=== PATIENT | male | born 1950 | race Caucasian/White ===

== ENCOUNTER → 2016-10-16 | Outpatient (CLI) | payer OTHER | END | disposition home or self-care (01) | LOC: RAD 08:18 | DX: M25.511 Pain in right shoulder (principal) ==

== ENCOUNTER 2017-02-05 05:14 | Day surgery (SDC) | payer OTHER ==
[~2017-02-05] VITALS: Ht 177.8 cm; Wt 100.2 kg
--- NOTE | ~2017-02-05 | EKG ---
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
--- NOTE | ~2017-02-05 | O ---
[facility] [place] [address] OPERATIVE REPORT Name: HUGH BLUE Room #: DEP [facility]#: [id number] Admission: 02/05/17 Attend Phys: Jose G Eden MD Discharge: 02/05/17 Date of : 46 Report #: [id number] THIS REPORT FOR: //name// CC: Jose G GARCIA unknown DATE OF SERVICE: 02/05/2017 PREOPERATIVE DIAGNOSIS: Right rotator cuff tear, chronic. POSTOPERATIVE DIAGNOSIS: Right rotator cuff tear, chronic. PROCEDURE: Repair of right shoulder rotator cuff tear, chronic. SURGEON: Jose G Eden MD INDICATIONS: This 66-year-old gentleman complains of right shoulder pain and weakness, which has been a problem for the past couple of years. He has had previous MRI evaluation consistent with a rotator cuff tear. He initially tried conservative management, but without much success. He has elected to go ahead with decompressive acromioplasty and rotator cuff repair at this time. We have discussed that this may be difficult as this appears to be a chronic tear with some significant retraction. DESCRIPTION OF PROCEDURE: The patient was taken to the operating room where he was placed under general anesthetic and interscalene block was also applied. The right shoulder and arm were meticulously prepped and draped. An anterior longitudinal skin incision was made beginning at the anterior acromion, extending distally about 4-5 cm. This was carried through subcutaneous tissues and the deltoid was split longitudinally exposing the subacromial space. There was significant spurring at the anterior acromion, which was resected. A limited subacromial decompression was performed using a small osteotome and a rasp to smooth the undersurface. This created a good subacromial space and seemed to decompress the area nicely. This allowed good visualization of the rotator cuff. There was an obvious chronic retracted tear. This was a broad V-shaped tear extending through most of the supraspinatus and extending back toward the infraspinatus. The leading edge was trimmed and debrided to get to a good solid tendon. There was still sufficient tendon to bring this back nearly to its anatomic position at the greater tuberosity. Seven #1 Tevdek sutures were utilized, each having very satisfactory purchase in the tendon. A satisfactory reattachment point was created by decorticating the bone and creating a small trough at the inner margin of the greater tuberosity using an osteotome and curettes. This resulted in a very satisfactory reattachment point. The sutures were then passed individually with a large curved trocar needle out through the bone of the greater tuberosity and lateral aspect of the proximal humerus. These were spread out evenly to distribute the force. Once [address] [address] OPERATIVE REPORT Name: HUGH BLUE Room #: DEP [facility] Ed#: [id number] Admission: 02/05/17 Attend Phys: Jose G Eden MD Discharge: 02/05/17 Date of : 46 Report #: [id number] they were all placed, firm tension was applied and the leading edge of the rotator cuff came back nicely into the trough and was secured by tying all these sutures individually over bony bridges. This resulted in a satisfactory nearly anatomic repair. The cuff is mildly tight, but I could bring the arm down to neutral position without undue tension on the repair and the repair seemed to be solid and stable. The shoulder demonstrated good range of motion. Prior to closure, the intraarticular contents were inspected. The biceps tendon is still present, but there is some fraying. This was gently trimmed. I assessed its attachment and felt there was still sufficient strength such that a biceps tenotomy was not necessary at this point. The articular surfaces revealed only minor fissuring and abrasion in various places. No other significant intra-articular problems were identified. At this point, the deltoid was reapproximated using multiple #1 Vicryl sutures. The most proximal were passed through the bone and the leading edge of the acromion to establish a good bone to tendon repair. More distally, a [id number]-[id number]-[id number] repair was accomplished. The subcutaneous tissues were closed with 2-0 Monocryl. The skin was closed with a running subcuticular 2-0 Prolene supplemented with Steri-Strips. About 20 mL of 0.25% Marcaine was injected into the subcutaneous tissues and the subacromial space to help with postoperative pain management. A sterile dressing was applied. The patient was then awakened and returned to the recovery room in good condition. <ELECTRONICALLY SIGNED> By: Jose G Eden MD 02/06/17 0757 [id number] 0933 Jose G Eden MD /nt
[~2017-02-05 05:14] MED LIST: ADVIL200 M1 PO; OMEPRAZOLE20 M1 PO; ZESTRIL10 MG PO
[2017-02-05 07:37] VITALS: BP 132/79
[2017-02-05 09:26] VITALS: BP 132/79
== END 2017-02-05 12:35 | disposition home or self-care (01) ==
LOC: TBA 05:14 → OR 05:14
DX: M75.101 Unspecified rotator cuff tear or rupture of right shoulder, not specified as traumatic (principal); I10 Essential (primary) hypertension; K21.9 Gastro-esophageal reflux disease without esophagitis; Z98.890 Other specified postprocedural states; Z79.899 Other long term (current) drug therapy
CPT/HCPCS: 50010; 50101; 50386; 50417; 50733; 56525; 56526; 56527; 62110; 62900; 64039; 70005

== ENCOUNTER → 2017-12-07 | Outpatient (CLI) | payer OTHER | LOC: MRI 08:29 | DX: M47.816 Spondylosis without myelopathy or radiculopathy, lumbar region (principal); M48.062 Spinal stenosis, lumbar region with neurogenic claudication; M51.26 Other intervertebral disc displacement, lumbar region ==

== ENCOUNTER 2018-02-25 05:36 | Inpatient (IN) | payer OTHER ==
[~2018-02-25] VITALS: Ht 177.8 cm; Wt 93.0 kg
--- NOTE | ~2018-02-25 | O ---
[facility] [place] [address] OPERATIVE REPORT Name: HUGH BLUE Chrissy Room #: 460-P [facility] ..#: [id number] Admission: 02/25/18 Attend Phys: Jose G Eden MD Discharge: Date of : 46 Report #: [id number] THIS REPORT FOR: //name// CC: Jose G Loza DATE OF SERVICE: 02/25/2018 PREOPERATIVE DIAGNOSIS: Lumbar spinal stenosis L3-L4 and L4-L5. POSTOPERATIVE DIAGNOSIS: Lumbar spinal stenosis L3-L4 and L4-L5. PROCEDURE: Decompressive laminectomy and foraminotomy, L3-L4 and L4-L5. SURGEON: Jose G Eden MD INDICATIONS: This active, fit 67-year-old gentleman complains of back pain and radiating right leg pain. We have tried conservative measures for some time without clear benefit. His clinical exam and MRI study confirms rather severe spinal stenosis at L4-L5 and moderate stenosis at L3-L4 where there is also a small disk bulge or herniation toward the right side. We have elected to go ahead with surgical decompression of these two levels. DESCRIPTION OF PROCEDURE: The patient was taken to the operating room where he was placed under general anesthesia. Prophylactic intravenous antibiotics were administered. He was turned to the prone position. The low back was meticulously prepped and draped. A skin incision was made extending from L3 down through L5. This was carried through the fascia and muscles were retracted laterally exposing the spinous process and lamina of these three levels. The spinous process was removed and a laminectomy was performed removing the entire L4 lamina and most of the L3 as well as most of the L5 lamina. The area of marked stenosis was found to be at the L4-L5 disk space level. This opened up nicely with resection of the lamina and ligamentum. This was extended out laterally undercutting the facet joints, but leaving the facet joints intact for stability. There was significant, but less severe stenosis at the L3-L4 disk level. The dissection was extended out laterally undercutting the facet joints, but leaving the facets intact for stability. The area of possible right L3-L4 disk bulge or disk herniation was evaluated and there was some bulging and there was some chronic scarring, but there was not significant extruded disk fragment. The disk itself seemed to be stable and I did not elect to open the disk. The nerve root seemed to be freed up nicely with the laminectomy and foraminotomy. Intraoperative C-arm was used to confirm that I was at or slightly above the L3 lamina and at the mid to lower aspect of the L5 lamina, which seemed to be above and below the areas of stenosis. The canal did seem to open up quite nicely on direct visualization with good open canal at the upper and lower aspect of the dissection. [facility] [address] [place] [address] OPERATIVE REPORT Name: HUGH BLUE Room #: 460-P [facility] M.R.#: [id number] Admission: 02/25/18 Attend Phys: Jose G Eden MD Discharge: Date of : 46 Report #: [id number] There was moderate oozing from the bony surfaces throughout the procedure. I felt therefore that Hemovac drains at least overnight would be appropriate. The dura was covered with a small sheet of Gelfoam soaked in thrombin. A single Hemovac was left below the fascia and then the fascia was closed with multiple #1 Vicryl sutures. A second Hemovac was placed above the fascia deep to the subcutaneous tissues and then the subcutaneous tissues were closed with 0 Monocryl. The skin was closed with skin mayank. A sterile dressing was applied. The patient was awakened and returned to recovery room in good condition. <ELECTRONICALLY SIGNED> By: Jose G Eden MD 02/26/18 0731 1136 1149 Jose G Eden MD /nt
--- NOTE | ~2018-02-25 | EKG ---
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
[2018-02-25 08:00] VITALS: BP 113/64
[2018-02-25 13:39] VITALS: BP 112/64
[2018-02-25 16:30] VITALS: BP 128/83
[2018-02-25 18:50] VITALS: BP 129/80
[2018-02-25 19:10] VITALS: BP 119/71
[2018-02-26 03:37] VITALS: BP 141/84
[2018-02-26 07:56] VITALS: BP 141/98
[2018-02-26 09:49] VITALS: BP 141/98
[2018-02-26 10:44] VITALS: BP 141/98
== END 2018-02-26 11:22 | disposition home or self-care (01) | DRG 517 ==
LOC: TBA 05:36 → OR 05:36 → 4W 11:41 → OR 14:09 → ENTRNSPT 02-26 11:12 → EDTRNSPTSTS 02-26 11:15 → 4W 02-26 11:22
PROC: 01NB0ZZ Release Lumbar Nerve, Open Approach (ICD-10-PCS; principal; 2018-02-25)
DX: M48.061 Spinal stenosis, lumbar region without neurogenic claudication (principal); Z79.899 Other long term (current) drug therapy
CPT/HCPCS: 10047; 50010; 50101; 50402; 50704; 50850; 51412; 56525; 62110; 62900; 70005